=== PATIENT | male | born 1940 | race Caucasian/White ===

== ENCOUNTER 2021-02-27 23:36 | Inpatient (IN) ==
[2021-02-28 00:37] LABS: Basophils % 0.2 %; Eosinophils # 0.2 K/mcL (0.0-0.6); Eosinophils % 1.7 %; Hematocrit 21.8 % (37.5-50.1); Hemoglobin 7.2 g/dL (12.9-16.9); Immature Granulocytes % 0.5 % (0-4); Lymphocytes % 7.9 %; Mean Corpuscular Hemoglobin 33.6 pg (28.0-33.3); Mean Corpuscular Volume 101.9 fL (83.0-100.0); Mean Platelet Volume 10.3 fL (9.4-12.4); Monocytes # 0.7 K/mcL (0.0-1.3); Monocytes % 5.4 %; Neutrophils # 10.3 K/mcL (1.6-8.9); Platelet Count 209 K/mcL (140-400); Red Blood Count 2.14 M/mcL (4.19-5.50); Red Cell Distribution Width 15.5 % (11.5-14.5); Segmented Neutrophils % 84.3 %; White Blood Count 12.2 K/mcL (4.3-11.1)
[2021-02-28 00:45] LABS: INR 1.4; Prothrombin Time 15.2 Seconds (9.4-12.1)
[2021-02-28] MEDS ORDERED: Pantoprazole 80 MG in 0.9 % Sodium Chloride 50 ML IVPB ONE (00:55)
[2021-02-28 01:00] LABS: Bilirubin,Urine Negative (Negative); Blood,Urine Negative (Negative); Clarity,Urine Clear (Clear); Color,Urine Light-Yellow (Yellow); Glucose,Urine (UA) Normal (Normal); Ketones,Urine Negative (Negative); Leukocyte Esterase,Urine Negative (Negative); Nitrite,Urine Negative (Negative); Protein,Urine Negative (Neg-Trace); Specific Gravity,Urine 1.014 (1.010-1.025); Urobilinogen,Urine Normal (Normal)
[2021-02-28] MEDS ORDERED: Pantoprazole 40 MG VIAL IVP ONE (01:00)
[2021-02-28 01:01] LABS: Albumin 2.9 g/dL (3.5-5.7); Albumin/Globulin Ratio 1.4 (1.1-2.2); Bilirubin,Direct 0.2 mg/dL (0.0-0.2); Bilirubin,Indirect 0.5 mg/dL (0.0-1.0); Bilirubin,Total 0.7 mg/dL (0.3-1.0); Calcium 8.4 mg/dL (8.6-10.3); Globulin 2.1 g/dL (2.4-3.5); Potassium 3.8 mEq/L (3.5-5.1)
[2021-02-28] MEDS ORDERED: 0.9 % Sodium Chloride 250 ML ONE (02:48)
[2021-02-28] MEDS ORDERED: Acetaminophen 325 MG TABLET PO PRN (02:55)
[2021-02-28] MEDS ORDERED: *HR* Promethazine 25 MG/ML VIAL IM PRN (02:55)
[2021-02-28] MEDS ORDERED: Naloxone 0.4 MG/ML INJ IVP PRN (02:55)
[2021-02-28] MEDS ORDERED: Melatonin 3 MG TABLET PO PRN (02:55)
[2021-02-28] MEDS ORDERED: Ondansetron 4 MG/2 ML VIAL IVP PRN (02:55)
[2021-02-28 10:34] LABS: VBG HCO3 38 mEq/L (21-27); VBG PCO2 72 mmHg (41-51); VBG PH 7.33 pH Units (7.32-7.42); VBG PO2 43 mmHg (25-50)
[2021-02-28 10:35] LABS: Basophils % 0.2 %; Eosinophils # 0.3 K/mcL (0.0-0.6); Eosinophils % 2.2 %; Hematocrit 26.4 % (37.5-50.1); Hemoglobin 8.3 g/dL (12.9-16.9); Immature Granulocytes % 0.4 % (0-4); Lymphocytes # 0.9 K/mcL (0.6-4.6); Lymphocytes % 6.9 %; Mean Corpuscular HGB Conc 31.4 g/dL (31.6-35.5); Mean Corpuscular Hemoglobin 31.3 pg (28.0-33.3); Mean Corpuscular Volume 99.6 fL (83.0-100.0); Mean Platelet Volume 10.2 fL (9.4-12.4); Monocytes # 0.9 K/mcL (0.0-1.3); Monocytes % 6.9 %; Neutrophils # 10.7 K/mcL (1.6-8.9); Platelet Count 200 K/mcL (140-400); Red Blood Count 2.65 M/mcL (4.19-5.50); Red Cell Distribution Width 17.2 % (11.5-14.5); Segmented Neutrophils % 83.4 %; White Blood Count 12.8 K/mcL (4.3-11.1)
[2021-02-28 10:49] LABS: Calcium 8.7 mg/dL (8.6-10.3); Magnesium 2.2 mg/dL (1.6-2.6); Potassium 3.5 mEq/L (3.5-5.1)
[2021-02-28] MEDS ORDERED: Ipratropium/Albuterol Neb 3 ML IH PRN ×2 (11:16→15:41)
[2021-02-28] MEDS: Pantoprazole 40 MG VIAL IVP SCH ×2 (11:27→16:52)
[2021-02-28] MEDS: allopurinoL 300 MG TABLET PO SCH (11:49)
[2021-02-28] MEDS: Ranolazine 500 MG TAB.ER.12H PO SCH ×2 (11:49→20:43)
[2021-02-28] MEDS: Metoprolol XL (24 HR) Succ 25 MG TAB.ER.24H PO SCH (11:49)
[2021-02-28] MEDS ORDERED: *HR* LORazepam 2 MG/ML VIAL IVP ONE (14:20)
[2021-02-28] MEDS: Furosemide 40 MG TABLET PO SCH (16:52)
[2021-02-28] MEDS: MethylPREDNISolone 40 MG/ML VIAL IVP SCH (16:52)
[2021-03-01] MEDS: MethylPREDNISolone 40 MG/ML VIAL IVP SCH ×4 (00:16→23:58)
[2021-03-01 01:57] LABS: Basophils % 0.1 %; Hematocrit 26.1 % (37.5-50.1); Hemoglobin 8.3 g/dL (12.9-16.9); Immature Granulocytes % 0.6 % (0-4); Lymphocytes # 0.4 K/mcL (0.6-4.6); Lymphocytes % 3.5 %; Mean Corpuscular HGB Conc 31.8 g/dL (31.6-35.5); Mean Corpuscular Hemoglobin 31.4 pg (28.0-33.3); Mean Corpuscular Volume 98.9 fL (83.0-100.0); Mean Platelet Volume 10.1 fL (9.4-12.4); Monocytes % 0.4 %; Neutrophils # 10.9 K/mcL (1.6-8.9); Platelet Count 205 K/mcL (140-400); Red Blood Count 2.64 M/mcL (4.19-5.50); Red Cell Distribution Width 17.3 % (11.5-14.5); Segmented Neutrophils % 95.4 %; White Blood Count 11.4 K/mcL (4.3-11.1)
[2021-03-01 02:34] LABS: Calcium 9.1 mg/dL (8.6-10.3); Potassium 4.2 mEq/L (3.5-5.1)
[2021-03-01 04:32] LABS: ABG Base Excess 13 mEq/L (-2 to 3); ABG HCO3 39 mEq/L (21-27); ABG Oxygen Saturation 95 % (95-98); ABG PCO2 66 mmHg (35-45); ABG PH 7.38 pH Units (7.32-7.45); ABG PO2 83 mmHg (85-104); ABG TCO2 41 mEq/L (20-26); Blood Gas VT 500 cc
[2021-03-01] MEDS: Pantoprazole 40 MG VIAL IVP SCH (05:26)
[2021-03-01] MEDS ORDERED: Lidocaine -MPF 2% 5 ML VIAL ONE (12:25)
[2021-03-01] MEDS ORDERED: *HR* Propofol 200 MG/20 ML VIAL IVP ONE (12:26)
[2021-03-01] MEDS: Furosemide 40 MG TABLET PO SCH ×2 (14:34→16:30)
[2021-03-01] MEDS: Ranolazine 500 MG TAB.ER.12H PO SCH ×2 (14:34→21:44)
[2021-03-01] MEDS: Metoprolol XL (24 HR) Succ 25 MG TAB.ER.24H PO SCH (14:34)
[2021-03-01] MEDS: allopurinoL 300 MG TABLET PO SCH (14:34)
[2021-03-02 02:37] LABS: Basophils % 0.1 %; Hematocrit 23.1 % (37.5-50.1); Hemoglobin 7.5 g/dL (12.9-16.9); Immature Granulocytes % 0.5 % (0-4); Lymphocytes # 0.6 K/mcL (0.6-4.6); Lymphocytes % 4.5 %; Mean Corpuscular HGB Conc 32.5 g/dL (31.6-35.5); Mean Corpuscular Hemoglobin 32.2 pg (28.0-33.3); Mean Corpuscular Volume 99.1 fL (83.0-100.0); Mean Platelet Volume 10.3 fL (9.4-12.4); Monocytes # 0.2 K/mcL (0.0-1.3); Monocytes % 1.7 %; Neutrophils # 11.4 K/mcL (1.6-8.9); Platelet Count 218 K/mcL (140-400); Red Blood Count 2.33 M/mcL (4.19-5.50); Red Cell Distribution Width 16.8 % (11.5-14.5); Segmented Neutrophils % 93.2 %; White Blood Count 12.2 K/mcL (4.3-11.1)
[2021-03-02 03:01] LABS: Calcium 8.8 mg/dL (8.6-10.3); Potassium 3.3 mEq/L (3.5-5.1)
[2021-03-02] MEDS: Ranolazine 500 MG TAB.ER.12H PO SCH ×2 (08:29→22:01)
[2021-03-02] MEDS: Furosemide 40 MG TABLET PO SCH ×2 (08:29→17:22)
[2021-03-02] MEDS: Metoprolol XL (24 HR) Succ 25 MG TAB.ER.24H PO SCH (08:29)
[2021-03-02] MEDS: allopurinoL 300 MG TABLET PO SCH (08:29)
[2021-03-02] MEDS: MethylPREDNISolone 40 MG/ML VIAL IVP SCH ×2 (08:29→18:10)
[2021-03-02] MEDS: Iron Sucrose Complex 250 MG in 0.9 % Sodium Chloride 250 ML IVPB SCH (18:47)
[2021-03-03 03:13] LABS: Basophils % 0.1 %; Hematocrit 22.9 % (37.5-50.1); Hemoglobin 7.6 g/dL (12.9-16.9); Immature Granulocytes % 0.6 % (0-4); Lymphocytes # 0.4 K/mcL (0.6-4.6); Lymphocytes % 2.9 %; Mean Corpuscular HGB Conc 33.2 g/dL (31.6-35.5); Mean Corpuscular Volume 99.6 fL (83.0-100.0); Mean Platelet Volume 10.4 fL (9.4-12.4); Monocytes # 0.4 K/mcL (0.0-1.3); Monocytes % 2.8 %; Neutrophils # 11.8 K/mcL (1.6-8.9); Platelet Count 189 K/mcL (140-400); Red Cell Distribution Width 16.3 % (11.5-14.5); Segmented Neutrophils % 93.6 %; White Blood Count 12.6 K/mcL (4.3-11.1)
[2021-03-03 03:40] LABS: Calcium 8.5 mg/dL (8.6-10.3); Potassium 3.9 mEq/L (3.5-5.1)
[2021-03-03] MEDS: allopurinoL 300 MG TABLET PO SCH (08:02)
[2021-03-03] MEDS: Ranolazine 500 MG TAB.ER.12H PO SCH (08:02)
[2021-03-03] MEDS: Furosemide 40 MG TABLET PO SCH (08:02)
[2021-03-03] MEDS: Metoprolol XL (24 HR) Succ 25 MG TAB.ER.24H PO SCH (08:02)
[2021-03-03] MEDS ORDERED: predniSONE 20 MG TABLET PO SCH (09:00)
[2021-03-03] MEDS ORDERED: predniSONE 20 MG TABLET PO ONE (09:22)
[2021-03-03 10:48] VITALS: BP 138/74; PULSE 51; TEMP 97.4; O2SAT 100
[2021-03-03] MEDS: Iron Sucrose Complex 250 MG in 0.9 % Sodium Chloride 250 ML IVPB SCH (12:32)
== END 2021-03-03 13:25 | disposition hospice, home (50) | DRG 377 ==
LOC: 3ANU 23:36 → EMEROOARM 23:36 → SUATTDRO 02-28 02:23 → 3ANU 02-28 03:27 → SUATTDRO 03-02 18:17
PROVIDERS: ADMIT Internal Medicine; ATTEND Family Medicine